=== PATIENT | female | born 2005 | race Caucasian/White ===

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

== ENCOUNTER 2024-09-02 06:47 | Outpatient (CLI) | payer BC, SELFPAY | END 2024-09-02 06:48 | disposition home or self-care (01) | PROVIDERS: PCP Physician Assistant; Visit Provider Physician Assistant | DX: K76.0 Fatty (change of) liver, not elsewhere classified (principal) | CPT/HCPCS: 74177; Q9967 ==

== ENCOUNTER 2025-05-25 08:18 | Outpatient (CLI) | payer BC, SELFPAY ==
[2025-05-25 09:23] LABS: Beta HCG Quantitative < 2.39 mIU/ML
== END 2025-05-25 08:19 | disposition home or self-care (01) ==
LOC: ANHLAB 08:20
PROVIDERS: PCP Physician Assistant; Visit Provider Obstetrics & Gynecology
DX: N92.6 Irregular menstruation, unspecified (principal)
CPT/HCPCS: 36415; 84702